=== PATIENT | female | born 1945 | race Caucasian/White ===

== ENCOUNTER 2021-03-20 07:59 | Emergency (ER) | payer MEDICARE ==
[~2021-03-20] VITALS: Ht 157.5 cm; Wt 70.3 kg
[2021-03-20] MEDS ORDERED: NAPROXEN250 MG PO (08:24)
[2021-03-20] MEDS ORDERED: PREDNISONE50 MG PO (08:24)
[2021-03-20] MEDS ORDERED: BACTRIM DS TAB1 EACH PO (08:24)
[2021-03-20] MEDS ORDERED: KETOROLAC TROMETHAMINE 60 MG/2 ML VIAL IM ONE (08:30)
[2021-03-20] MEDS ORDERED: PREDNISONE 20 MG TAB PO ONE (08:30)
[2021-03-20] MEDS ORDERED: PREDNISONE 20 MG TAB ONE (08:38)
[2021-03-20] MEDS ORDERED: KETOROLAC TROMETHAMINE 60 MG/2 ML VIAL ONE (08:38)
== END 2021-03-20 09:52 | disposition home or self-care (01) ==
LOC: FSED 08:10
DX: M79.672 Pain in left foot (principal); M79.671 Pain in right foot; M10.9 Gout, unspecified; I10 Essential (primary) hypertension; I48.91 Unspecified atrial fibrillation; E03.9 Hypothyroidism, unspecified; M54.9 Dorsalgia, unspecified; G89.29 Other chronic pain
CPT/HCPCS: 99283; J1885; J7512